=== PATIENT | male | born 1945 | race Caucasian/White ===

== ENCOUNTER → 2017-11-21 | Outpatient (CLI) | payer MEDICARE ==
[~2017-11-21] MED LIST: AMARYL4 MG PO; ASPIRIN ADULT L81 M1 PO; CHOLESTEROL PILL; CIPRO500 MG PO; EUCERIN1 CRE T; FLONASE 0.05% 121 EA NAS; LASIX40 MG PO; LISINOPRIL40 MG PO; LUMIGAN 2.5 ML2.5 M1 OP; METFORMIN1000 MG PO; VERAPAMIL240 MG PO; ZOCOR10 MG PO
== END | disposition home or self-care (01) ==
LOC: WOUNDCARE 00:49
DX: S81.802A Unspecified open wound, left lower leg, initial encounter (principal); S81.801A Unspecified open wound, right lower leg, initial encounter; E10.9 Type 1 diabetes mellitus without complications; I87.309 Chronic venous hypertension (idiopathic) without complications of unspecified lower extremity; E66.01 Morbid (severe) obesity due to excess calories; I89.0 Lymphedema, not elsewhere classified; J44.9 Chronic obstructive pulmonary disease, unspecified; F17.200 Nicotine dependence, unspecified, uncomplicated; Z68.43 Body mass index [BMI] 50.0-59.9, adult; X58.XXXA Exposure to other specified factors, initial encounter; Y93.89 Activity, other specified; Y92.89 Other specified places as the place of occurrence of the external cause; Y99.8 Other external cause status

== ENCOUNTER → 2017-11-24 | Outpatient (CLI) | payer MEDICARE | END | disposition home or self-care (01) | LOC: US 11:16 | DX: I73.9 Peripheral vascular disease, unspecified (principal); I87.003 Postthrombotic syndrome without complications of bilateral lower extremity ==

== ENCOUNTER → 2017-11-28 | Outpatient (CLI) | payer MEDICARE | END | disposition home or self-care (01) | LOC: WOUNDCARE 03:40 | DX: I89.0 Lymphedema, not elsewhere classified (principal); I87.303 Chronic venous hypertension (idiopathic) without complications of bilateral lower extremity; E10.9 Type 1 diabetes mellitus without complications; E66.01 Morbid (severe) obesity due to excess calories; F17.290 Nicotine dependence, other tobacco product, uncomplicated; Z68.43 Body mass index [BMI] 50.0-59.9, adult ==

== ENCOUNTER → 2017-12-19 | Outpatient (CLI) | payer MEDICARE | END | disposition home or self-care (01) | LOC: WOUNDCARE 15:02 | DX: S81.801D Unspecified open wound, right lower leg, subsequent encounter (principal); I89.0 Lymphedema, not elsewhere classified; I87.303 Chronic venous hypertension (idiopathic) without complications of bilateral lower extremity; E10.9 Type 1 diabetes mellitus without complications; E66.01 Morbid (severe) obesity due to excess calories; F17.290 Nicotine dependence, other tobacco product, uncomplicated; Z68.43 Body mass index [BMI] 50.0-59.9, adult; X58.XXXD Exposure to other specified factors, subsequent encounter ==

== ENCOUNTER → 2018-03-16 | Day surgery (SDC) | payer MEDICARE ==
[~2018-03-16] MED LIST changes: +LANTUS SOL100 UNIT/1 SQ; +VICTOZA 2-0.6 MG/0.1 SC
--- NOTE | ~2018-03-16 | PROC NOTE ---
[place], [place] PROCEDURE NOTE NAME: CHAYO WARD UNIT #: [id number] ROOM: DOCTOR: STEPHENIE FRIEND MD BIRTHDATE: [birth year] DOS: 03/16/2018 PROCEDURE: Colonoscopy and polypectomy. INDICATION: Positive fecal occult blood test. An informed consent was obtained from the patient after the indication of procedure, the alternatives and potential complications were explained to him. PROCEDURE MEDICATION: Sedation was administered by Anesthesiology Department. Scope used was Olympus diagnostic adult colonoscope variable stiffness GIF-180, depth of insertion was to the cecum, which was identified by the usual landmarks, appendiceal orifice, ileocecal valve and triangular fold. FINDINGS: After adequate sedation, the patient was placed in left lateral decubitus position. Rectal examination showed a normal sphincter tone and no external hemorrhoids. The scope was introduced into the rectum, then advanced to the cecum with marked difficulty due to looping in the left colon and the presence of a long redundant colon. The prep was adequate. Three polyps were identified in the left colon; all removed with a cold snare; a 10 mm descending colon, a 10 mm rectal polyp and another smaller 6 mm rectal polyp. All polyps were removed with a cold snare and recovered. The remaining colon mucosa showed evidence of extensive left-sided diverticular disease, but no other abnormalities. Retroflexed views in the rectum showed grade 1 internal hemorrhoids. The scope was then withdrawn after the rectum was decompressed. The patient tolerated the procedure well. IMPRESSION: 1. Colon polyps x 3, removed. 2. Extensive left-sided diverticular disease. 3. Small internal hemorrhoids. 4. Normal colon mucosa otherwise. PLAN: We will review the histopathology report and treat the patient accordingly. The patient was advised to avoid aspirin and NSAIDs for the next 10 days. Office followup will be scheduled in 2-3 weeks. [place], [place] PROCEDURE NOTE NAME: CHAYO WARD Kami UNIT #: [id number] ROOM: DOCTOR: STEPHENIE FRIEND MD BIRTHDATE: [birth year] STEPHENIE FRIEND MD CM:PROCNOTE:PROCEDURE NOTE [id number] AUSTEN FRIEND MD
[2018-03-16 08:00] VITALS: BP 145/79
[2018-03-16 09:15] VITALS: BP 84/54
[2018-03-16 09:30] VITALS: BP 98/65
[2018-03-16 09:40] VITALS: BP 114/67
== END | disposition home or self-care (01) ==
LOC: SDC 03-09 08:00
DX: D12.4 Benign neoplasm of descending colon (principal); K62.1 Rectal polyp; K57.30 Diverticulosis of large intestine without perforation or abscess without bleeding; K64.8 Other hemorrhoids; I10 Essential (primary) hypertension; E11.9 Type 2 diabetes mellitus without complications; J44.9 Chronic obstructive pulmonary disease, unspecified; E78.00 Pure hypercholesterolemia, unspecified; H40.9 Unspecified glaucoma; N41.1 Chronic prostatitis; E66.01 Morbid (severe) obesity due to excess calories; Z98.52 Vasectomy status; Z82.49 Family history of ischemic heart disease and other diseases of the circulatory system; Z79.4 Long term (current) use of insulin; Z79.82 Long term (current) use of aspirin; Z79.899 Other long term (current) drug therapy; Z68.43 Body mass index [BMI] 50.0-59.9, adult; Z98.890 Other specified postprocedural states

== ENCOUNTER → 2018-09-06 | Outpatient (CLI) | payer MEDICARE ==
[2018-09-06 09:47] LABS: BASO # 0.1 10*3/uL (0.0-0.1); BASO % 0.7 % (0.0-1.0); EOS # 0.3 10*3/uL (0.0-0.4); EOS % 2.6 % (1.0-4.0); HEMATOCRIT 47.2 % (42.0-52.0); LYMPH # 3.4 10*3/uL (1.3-4.4); LYMPH % 26.6 % (27.0-41.0); MEAN CELL VOLUME 99.6 fl (80.0-94.0); MEAN CORPUSCULAR HGB 31.6 pg (27.0-31.0); MEAN CORPUSCULAR HGB CONC 31.8 g/dl (33.0-37.0); MEAN PLATELET VOLUME 12.7 fl (9.6-12.3); MONO # 1.2 10*3/uL (0.1-1.0); MONO % 9.2 % (3.0-9.0); NEUT # 7.7 10*3/uL (2.3-7.9); NEUT % 60.2 % (47.0-73.0); PLATELET COUNT AUTOMATED 175 10*3/uL (130-400); RED BLOOD COUNT 4.74 10*6/uL (4.50-5.90); RED CELL DISTRI WIDTH 14.5 % (0-14.5); WHITE BLOOD COUNT 12.9 10*3/uL (4.8-10.8)
[2018-09-06 10:17] LABS: ALBUMIN 3.6 gm/dl (3.1-4.5); BUN 12 mg/dl (7-24); CHLORIDE 97 mmol/L (98-107); CHOLESTEROL 153 mg/dL (<200); CREATININE 0.87 mg/dL (0.70-1.30); POTASSIUM 3.6 mmol/L (3.5-5.1); SGOT/AST 19 IU/L (3-35); SGPT/ALT 42 U/L (12-78); SODIUM 136 mmol/L (136-145); TOTAL PROTEIN 7.5 gm/dL (6.4-8.2); TRIGLYCERIDES 189 mg/dl (<150); VLDL CHOLESTEROL 38 mg/dL (6-40)
[2018-09-06 10:24] LABS: ALKALINE PHOSPHATASE 45 U/L (45-117); FREE T4 0.74 ng/dl (0.76-1.46); HDL CHOLESTEROL 36 mg/dl (40-60); LDL CHOLESTEROL 79 mg/dL (9-159)
[2018-09-06 10:49] LABS: VITAMIN D, 25-HYDROXY 19.5 ng/mL (30-100)
== END | disposition home or self-care (01) ==
LOC: LAB 09:06
DX: E03.9 Hypothyroidism, unspecified (principal); E78.2 Mixed hyperlipidemia; I10 Essential (primary) hypertension; D51.9 Vitamin B12 deficiency anemia, unspecified; D52.9 Folate deficiency anemia, unspecified; E11.9 Type 2 diabetes mellitus without complications; E55.9 Vitamin D deficiency, unspecified

== ENCOUNTER 2019-01-21 09:25 | Inpatient (IN) | payer MEDICARE ==
[~2019-01-21] VITALS: Ht 167.6 cm; Wt 161.6 kg
[2019-01-21] VITALS (8 sets, daily range): BP systolic 96–158; BP diastolic 40–76
[~2019-01-21 09:25] MED LIST changes: -LUMIGAN 2.5 ML2.5 M1 OP; +LUMIGAN50 DRP OU
[2019-01-21 10:07] LABS: HEMATOCRIT 34.6 % (42.0-52.0); HEMOGLOBIN 10.3 g/dl (14.0-18.0); MEAN CELL VOLUME 97.2 fl (80.0-94.0); MEAN CORPUSCULAR HGB 28.9 pg (27.0-31.0); MEAN CORPUSCULAR HGB CONC 29.8 g/dl (33.0-37.0); MEAN PLATELET VOLUME 11.2 fl (9.6-12.3); NUCLEATED RED BLOOD CELL 0.1 % (0.0-0.0); PLATELET COUNT AUTOMATED 289 10*3/uL (130-400); RED BLOOD COUNT 3.56 10*6/uL (4.50-5.90); RED CELL DISTRI WIDTH 16.4 % (0-14.5)
[2019-01-21 10:19] LABS: INTERNATIONAL NORM RATIO 0.9 (2.0-3.5)
[2019-01-21 10:22] LABS: ALBUMIN 2.7 gm/dl (3.1-4.5); ALKALINE PHOSPHATASE 53 U/L (45-117); BUN 35 mg/dl (7-24); CHLORIDE 105 mmol/L (98-107); LIPASE 130 U/L (73-393); POTASSIUM 4.5 mmol/L (3.5-5.1); SGOT/AST 15 IU/L (3-35); SGPT/ALT 22 U/L (12-78); SODIUM 139 mmol/L (136-145); TROPONIN I < 0.015 ng/ml (<0.045)
--- NOTE | 2019-01-21 10:25 | NUR ---
NOTIFED BY LAB, PT HAS LACTIC ACID OF 7.4, DR DAWSON NOTIFED.
[2019-01-21 10:33] LABS: BASOPHILS 1 % (0-1); PLATELET SUFFICIENCY NORMAL (NORMAL); POLYCHROMASIA SLIGHT; TOTAL CELLS COUNTED 100 #CELLS
--- NOTE | 2019-01-21 11:37 | NUR ---
DR DUVALL AWARE OF CONSULT
--- NOTE | 2019-01-21 11:50 | NUR ---
A 73, admitted to ICCU, under the services of Dr. MICHAEL OSMAN,AMITA Del Toro with a diagnosis of . Chief complaint is BRIGHT RED RECTAL BLEEDING Patient arrived via stretcher from ER. Monitor applied. Initial assessment completed. Vital signs taken and recorded. DR. MICHAEL OSMAN,AMITA Del Toro notified of admission to the unit. Orders received. See assessment for past medical history, medications and allergies. Patient and/or family oriented to unit. [facility]U visitation policy reviewed. Clothing/patient valuable form completed. ALTAF MOTT
[2019-01-21] MEDS ORDERED: ATORVASTATIN CA40 M1 PO (11:56)
[2019-01-21] MEDS ORDERED: NITROFURANTOIN100 M3 PO (12:03)
[2019-01-21] MEDS ORDERED: INDOMETHACIN ER75 M1 PO (12:06)
[2019-01-21] MEDS ORDERED: APRESOLINE25 MG PO (12:08)
[2019-01-21] MEDS ORDERED: AMLODIPINE BESYL5 MG PO (12:09)
[2019-01-21] MEDS ORDERED: OMEPRAZOLE40 MG PO (12:11)
[2019-01-21] MEDS ORDERED: CYCLOBENZAPRIN7.5 M2 PO (12:12)
[2019-01-21] MEDS ORDERED: BRIMONIDINE TAR OP (12:13)
[2019-01-21] MEDS ORDERED: SPIRIVA RESPIMAT4 GM INH (12:15)
--- NOTE | 2019-01-21 12:45 | NUR ---
TAP WATER EMENA DONE AT THIS TIME. 1000 ML WAS USED. PT TOLERATED WELL. WILL CONTINUE TO MONITOR THE PATIENT
--- NOTE | 2019-01-21 13:00 | NUR ---
PT DESAT WHEN ASLEEP ON BACK, NC AT 2L PLACED PT ADMITS TO BEING DX WITH SLEEP APNEA, BUT HE NEVER BOTHERED TO GET "THAT SLEEPING MACHINE"
--- NOTE | 2019-01-21 13:18 | NUR ---
DR RODRIGUEZ CALLED WITH LACTIC ACID
--- NOTE | 2019-01-21 13:24 | NUR ---
DR RODRIGUEZ CALLED WITH CT RESULTS
--- NOTE | 2019-01-21 16:48 | NUR ---
TAP WATER ENEMA ADMINISTERED AT THIS TIME, 1000ML WAS INSERTED. WILL CONTINUE TO MONITOR THE PATIENT.
--- NOTE | 2019-01-21 16:55 | NUR ---
tap water enema done, with return of lema water with a few small specks of blood
--- NOTE | 2019-01-21 18:16 | NUR ---
TO OR VIA BED
--- NOTE | 2019-01-21 20:35 | NUR ---
2030 RETURNED FROM OR VIA BED. ALERT AND ORIENTED. NO C/O'S VOICED. REPORT RECEIVED. IV FLUIDS INFUSING WELL. NO DISTRESS NOTED. PULSE OX 93% ON 2L.
--- NOTE | 2019-01-21 21:24 | NUR ---
DR. DUVALL CALLED WITH RESULTS OF EGD. NO NEW ORDERS RECEIVED.
--- NOTE | 2019-01-21 22:13 | NUR ---
2129 ROUTINE ATIVAN AND FLEXERIL GIVEN. 2209 EARLIER MEDS EFFECTIVE. RESTING IN BED WITH EYES CLOSED. APPEARS TO BE SLEEPING.
[2019-01-22] VITALS: BP 139/56
--- NOTE | 2019-01-22 00:08 | NUR ---
REMAINS SLEEPING WIHTOUT DISTRESS. 02 INTACT. NO C/O'S VOICED.
--- NOTE | 2019-01-22 02:06 | NUR ---
0100 VOIDED ON FLOOR. THEN UP TO BSC AND VOIDED MORE. STEWARD.
[2019-01-22 04:00] VITALS: BP 130/62
--- NOTE | 2019-01-22 04:05 | NUR ---
RESTING IN BED WITH EYES CLOSED. APPEARS TO BE SLEEPING.
[2019-01-22 06:10] LABS: HEMATOCRIT 30.2 % (42.0-52.0); HEMOGLOBIN 8.9 g/dl (14.0-18.0); MEAN CELL VOLUME 98.1 fl (80.0-94.0); MEAN CORPUSCULAR HGB 28.9 pg (27.0-31.0); MEAN CORPUSCULAR HGB CONC 29.5 g/dl (33.0-37.0); PLATELET COUNT AUTOMATED 238 10*3/uL (130-400); RED BLOOD COUNT 3.08 10*6/uL (4.50-5.90); RED CELL DISTRI WIDTH 16.8 % (0-14.5); WHITE BLOOD COUNT 12.3 10*3/uL (4.8-10.8)
--- NOTE | 2019-01-22 06:11 | NUR ---
0530 UP TO BSC. URINATED ON FLOOR. LINENS WET. BATH TAKEN AT BEDSIDE AND LINENS CHANGED. ROUTINE ATIVAN PO GIVEN. 0600 RESTING IN BED WITH EYES CLOSED. APPEARS TO BE SLEEPING. IV FLUIDS CONT. 02 INTACT. CONDITION GUARDED.
[2019-01-22 06:25] LABS: ALBUMIN 2.6 gm/dl (3.1-4.5); BUN 26 mg/dl (7-24); CHLORIDE 108 mmol/L (98-107); POTASSIUM 4.3 mmol/L (3.5-5.1); SODIUM 142 mmol/L (136-145)
[2019-01-22 06:28] LABS: ALKALINE PHOSPHATASE 52 U/L (45-117); CREATININE 0.82 mg/dL (0.70-1.30); SGOT/AST 13 IU/L (3-35); SGPT/ALT 19 U/L (12-78); TOTAL PROTEIN 6.3 gm/dL (6.4-8.2)
[2019-01-22 07:02] LABS: ATYPICAL LYMPHS 1 % (0-0); PLATELET SUFFICIENCY NORMAL (NORMAL); POLYCHROMASIA SLIGHT; TOTAL CELLS COUNTED 100 #CELLS
--- NOTE | 2019-01-22 07:59 | NUR ---
CHAYO WARD [id number] Please refer to the physician's history and physical for past medical history, comorbid conditions, and allergies. Diagnosis: GI BLEED ISCHEMIC COLITIS ACUTE BLOOD LOSS ANEMIA Armaan Score: 15,AT RISK WOUND DESCRIPTIONS: Wound Number: 1 Location of the wound: distal scrotum ( left groin ) Type of wound: traumatic Thickness: Partial Size: 3.0cm x 2.1cm x 0.1cm Tunneling: none Undermining: none Sinus Tract: none Presence of Exudate: Serous Amount: Light Color: Red Odor: None Periwound Skin Appearance: Normal Wound edges: approximated Pain (associated with wound): none at time of assessment How does patient state this happened? pt unable to state how this happened Kailey Escalera WHOLESALE REPRESENTATIVE- states it was caused from him adjusting his undergarments. Wound Number: 2 Location of the wound: right posterior distal thigh ( right buttocks ) Type of wound: stage 2 Thickness: Partial Size: 1.7cm x 1.5cm x 0.1cm Tunneling: none Undermining: none Sinus Tract: none Presence of Exudate: Serous sanguineous Amount: Light Color: Red Odor: None Periwound Skin Appearance: Normal Wound edges: approximated Pain (associated with wound): none at time of assessment How does patient state this happened? pt states follow in the wound care center Wound Number: 3 Location of the wound: left lower extremity Type of wound: Thickness: Full Size: 47.0cm x 57.0cm x 0.1cm Tunneling: none Undermining: none Sinus Tract: none Presence of Exudate: Serosanguineous Amount: Heavy Color: Red Odor: None Periwound Skin Appearance: Normal Wound edges: approximated Pain (associated with wound): none at time of assessment How does patient state this happened? pt states home health wraps his leg at home but is unsure what doctor he sees for them I spoke with the wound care center and they stated they aren't following areas to bilateral lower extremities Wound Number: 4 Location of the wound: left lower extremity Type of wound: Thickness: Full Size: 47.0cm x 57.0cm x 0.1cm Tunneling: none Undermining: none Sinus Tract: none Presence of Exudate: Serosanguineous Amount: Heavy Color: Red Odor: None Periwound Skin Appearance: Normal Wound edges: approximated Pain (associated with wound): none at time of assessment How does patient state this happened? pt states home health wraps his leg at home but is unsure what doctor he sees for them I spoke with the wound care center and they stated they aren't following areas to bilateral lower extremities Wound Number: 5 Location of the wound: right posterior proxmial thigh ( right buttocks) Type of wound: stage 2 Thickness: Partial Size: 0.9cm x 2.5cm x 0.1cm Tunneling: none Undermining: none Sinus Tract: none Presence of Exudate: Serosanguineous Amount: Light Color: Red Odor: None Periwound Skin Appearance: Normal Wound edges: approximated Pain (associated with wound): none at time of assessment How does patient state this happened? pt states follow in wound care center Wound Number: 6 Location of the wound: proximal scrotum ( left groin ) Type of wound: traumatic Thickness: Partial Size: 0.6cm x 1.2cm x 0.1cm Tunneling: none Undermining: none Sinus Tract: none Presence of Exudate: Serous Amount: Light Color: Red Odor: None Periwound Skin Appearance: Normal Wound edges: approximated Pain (associated with wound): none at time of assessment How does patient state this happened? pt unable to state how this happened Kailey Escalera WHOLESALE REPRESENTATIVE-BC states it was caused from him adjusting his undergarments. Surface the patient is resting on: Isoflex SKIN PREVENTION RECOMMENDATION: 1. Pressure redistribution support surface as appropriate 2. Elevate heels 3. Remove boots/TEDS every shift and reapply 4. Head of bed 30 degrees as tolerated 5. Assess nutrition and hydration 6. Manage moisture 7. Avoid the use of containment devices while in bed 8. Use absorptive products on surfaces limit layers of linens on bed 9. Turn and reposition every 1-2 hours in bed and every 1 hour in chair as tolerated 10. Weight shifts every 15 minutes while up in chair 11. Offloading with pillows or device to keep heels elevated off bed 12. Monitor skin at least every shift 13. Inspect under medical devices twice a day WOUND TREATMENT RECOMMENDATIONS: Venous and arterial studies due to non-healing wounds. Consult podiatry for bilateral lower extremities due to non-healing wounds and possible debridement if studies allow. Stage 2 guidelines: Cleanse right posterior proximal thigh and right posterior distal thigh with nss and apply sureprep around the wound hydrogel to wound bed and cover with optifoam gentle Cleanse distal scrotum and proximal scrotum with nss apply calazime every shift and prn for soiling Wheelchair cushion when oob Heel raiser pro boots to bilateral heels while in bed Cleanse bilateral lower extremities with soap and water and apply lac-hydrin BID then cover with ABD pads and lightly wrap with kerlix BID and PRN for soiling.
[2019-01-22 08:00] VITALS: BP 101/50
[2019-01-22 12:00] VITALS: BP 145/48
--- NOTE | 2019-01-22 12:00 | NUR ---
PT SLEEPING IN BED. RESP-EASY AND REGULAR. IVF INFUSING WITH NO PROBLEM. CALL LIGHT IN REACH. SEE SHIFT ASSESSMENT.
--- NOTE | 2019-01-22 12:13 | NUR ---
Umbrella Repairer in to talk to patient. Patient states lives at home with his . There are 4 steps outside the home. Physician: Dr. Wili Naranjo [facility]acy: [facility] Home health services: none Patient's level of ADLs: INDEPENDENT Patient has working utilities: yes DME: none Follow-up physician's appointment after d/c: he prefers to make his own follow up appt after discharge Does patient want to access PORTAL?: no Discharge plan discussed with patient. He lives at home with his . He is independent in his ADLs and ambulation. Discussed short term SNF and home health care services and he refuses both. When medically stable he will be discharged to home. His will provide transportation on discharge. Hgb 8.9, EGD showed gastritis, colo showed retained stool. BC pending. BP 101/50, holding norvasc and lisinopril. JONAH RUBIO
--- NOTE | 2019-01-22 14:35 | NUR ---
PT ESCORTED VIA WHEELCHAIR TO ULTRASOUND.
[2019-01-22 16:00] VITALS: BP 135/53
--- NOTE | 2019-01-22 16:00 | NUR ---
PT RESTING IN BED. RESP-EASY AND REGULAR. BSG-149, SEE EMAR. IVF INFUSING WITH NO PROBLEM. OXYGEN IN USE. CALL LIGHT IN REACH. SEE SHIFT ASSESSMENT.
[2019-01-22 20:00] VITALS: BP 151/56
[2019-01-23] VITALS: BP 132/58
--- NOTE | 2019-01-23 00:20 | NUR ---
TONJAX & ADAPTASHLEY APPLIED TO BLL LEGS ARE SEEPING/DRAINING ONTO BED. PT TOLERATED WELL. WILL MONITOR.
[2019-01-23 08:00] VITALS: BP 136/78
--- NOTE | 2019-01-23 11:14 | NUR ---
Bulk Pallet Builder in to see patient. He is sitting up in his bedside chair without distress noted. Discussed short term SNF and he is agreeable. When provided with a list of facilities he chose [facility]. He is very [place]. cyber intel planner notified.
--- NOTE | 2019-01-23 11:24 | NUR ---
PT HAD REMOVED IV WHILE SITTING IN CHAIR EATING BREAKFAST AND IV ESTABLISHED BY THIS FLOAT RN 20G RIGHT AC 2 ATTEMPTS BY THIS RN.
--- NOTE | 2019-01-23 11:25 | NUR ---
Patient is now requesting a referral to [facility]. Contacted facility and faxed referral. Requires PT/OT evals and precert. waiting on review and evals.
--- NOTE | 2019-01-23 11:50 | NUR ---
Occupational Therapy evaluation completed on 4 with full eval to follow. Precautions include obesity, IV UE, Oxygen dependency, [place] w/ hearing aides, glaucoma, moderate complexity level 45571. Recommend OT per pOC and SNF to enable return home w/ elderly at max ability to function. Thank you. Derrek Marsh OTR/l
[2019-01-23 12:00] VITALS: BP 130/50
--- NOTE | 2019-01-23 12:20 | NUR ---
PHYSICAL THERAPY Mina completed moderate level of complexity [id number] recommend SNF at discharge PT to work on transfers,ambulation,balance,safety and strengthening. Full report to follow, thank you. Lucero Coronado PT
[2019-01-23 13:03] LABS: ARTERIAL BLOOD GAS PH 7.316 (7.35-7.45)
--- NOTE | 2019-01-23 13:39 | NUR ---
PT and OT evals completed and faxed to [facility] for review. Asked to start precert
--- NOTE | 2019-01-23 13:55 | NUR ---
Patient accepted to [facility], yeni started today. [facility] stating they need to order a larger bed for this patient and it will not arrive until tomorrow.
[2019-01-23 16:00] VITALS: BP 150/56
[2019-01-23 16:27] LABS: ABG BASE EXCESS 4.2 mmol/L (-2.0-2.0); ARTERIAL BLOOD GAS PH 7.305 (7.35-7.45)
[2019-01-23 20:00] VITALS: BP 147/47
--- NOTE | 2019-01-23 23:32 | NUR ---
PATIENT AT THIS TIME FELL. BED ALARM WENT OFF AND THIS NURSE AND AN AID WENT INTO PATIENT ROOM. PATIENT WAS SITTING ON THE SIDE OF THE BED AND STATED THAT HE NEEDED TO GO TO THE BATHROOM. THIS NURSE LOOKED FOR URINAL AND COULD NOT FIND ONE, HE STATED HE WAS USING THE BEDSIDE COMMODE BECAUSE HE IS UNABLE TO USE THE URINAL. THE BEDSIDE WAS BROUGHT CLOSE TO PATIENT HE IS UNSTEADY ON HIS FEET. PATIENT STOOD UP AND STATED HE WANTED TO STAND THERE AND ATTEMPT TO USE IT STANDING UP. THIS NURSE ENCOURAGED THE PATIENT THAT IF HE IS UNABLE TO USE THE URINAL THAT HE SHOULD PROBABLY SIT DOWN ON THE BEDSIDE, PATIENT REFUSED AND BEGAN TO PULL HIS GOWN UP AND STARTED TO FALL BACKWARDSS. PATIENT FELL ON GROUND. DID NOT HIT HEAD, FELL ON BIPAP AND THEN ON THE FLOOR. STATES HE DID NOT HURT ANYTHING AND WAS FINE. PATIENT GOT BACK UP AND WE GOT HIM BCK IN BED AND ASSISTED HIM WITH USING THE URINAL IN BED. BED ALARM REAPPLIED AND ENCOURAGED PATIENT TO CALL OUT FOR ASSISTANCE WITH THE URINAL IF HE IS UNBLE TO USE IT HIMSELF. HE VERBALIZED UNDERSTANDING. FIELD SERVICE MANAGER MADE AWARE. PATIENT WILL BE MOVED TO A CLOSER ROOM.
[2019-01-23 23:37] VITALS: BP 152/63
[2019-01-24] VITALS: BP 162/74
--- NOTE | 2019-01-24 04:45 | NUR ---
PATIENT REMOVED BIPAP AND STATES HE NEEDS TO SAY SOMETHING. BIPAP REMOVED AND PLACED ON 4L NC, SPO2 DECREASED TO LOW 80'S. EDUCATED AND PLACED BACK ON BIPAP. PATIENT STATES THAT HE NEEDS TO USE THE REST ROOM AT THIS TIME AND ATTEMPTING TO GET OOB, ASSISTED BACK INTO BED AND URINAL PROVIDED, ALSO ASSISTED TO MOVE UP IN BED. HR TACHY AT THIS TIME AND SPO2 93. PATIENT REPOSITIONED AND MADE COMFORTABLE. WILL REASSESS. CALL LIGHT IN REACH.
--- NOTE | 2019-01-24 05:44 | NUR ---
IV ATIVAN GIVEN FOR INCREASED AGITATION. WILL MONITOR. HR 114 SPO2 93 ON BIPAP
[2019-01-24 07:16] LABS: ABG BASE EXCESS 6.2 mmol/L (-2.0-2.0); ARTERIAL BLOOD GAS PH 7.354 (7.35-7.45)
--- NOTE | 2019-01-24 07:40 | NUR ---
Patient accepted to [facility], precert started 01/23/19, waiting on auth
--- NOTE | 2019-01-24 07:50 | NUR ---
PT TEMP READING 103.[address] BIRD NOTIFIED. ADMINISTERED TYLENOL ORDERED AND TRANSFERRED TO ICCU ORDERRED.
--- NOTE | 2019-01-24 08:12 | NUR ---
OT NOTE Attempted to see pt this A.M. for OT session and upon arrival pt's nurse reported that pt is on hold at this time due to high fever. Will check back at a later time/date and continue with POC as indicated. LUIS CARLOS Woodosn/Kami
[2019-01-24 08:14] LABS: HEMATOCRIT 30.8 % (42.0-52.0); HEMOGLOBIN 9.2 g/dl (14.0-18.0); MEAN CELL VOLUME 95.7 fl (80.0-94.0); MEAN CORPUSCULAR HGB 28.6 pg (27.0-31.0); MEAN CORPUSCULAR HGB CONC 29.9 g/dl (33.0-37.0); MEAN PLATELET VOLUME 10.6 fl (9.6-12.3); PLATELET COUNT AUTOMATED 282 10*3/uL (130-400); RED BLOOD COUNT 3.22 10*6/uL (4.50-5.90); RED CELL DISTRI WIDTH 16.5 % (0-14.5); WHITE BLOOD COUNT 23.5 10*3/uL (4.8-10.8)
[2019-01-24 08:20] VITALS: BP 110/40
--- NOTE | 2019-01-24 08:20 | NUR ---
RECIEVED IN ICCU FROM [facility] FOR ELEVATED TEMP AND RESP DISTRESS, PT ALERT AND ORIENTED, SOMEWHAT DISORIENTED TO PLACE AND CURRENT EVENTS, PULLS AT BIPAP BUT OTHERWISE COOPERATIVE, SECOND IV PLACED IN RIGHT HAND, LUNG DIMINISHED THRU OUT
[2019-01-24 08:29] LABS: ALBUMIN 2.7 gm/dl (3.1-4.5); ALKALINE PHOSPHATASE 59 U/L (45-117); BUN 7 mg/dl (7-24); CHLORIDE 104 mmol/L (98-107); CREATININE 0.77 mg/dL (0.70-1.30); POTASSIUM 4.6 mmol/L (3.5-5.1); SGOT/AST 22 IU/L (3-35); SGPT/ALT 25 U/L (12-78); SODIUM 139 mmol/L (136-145)
--- NOTE | 2019-01-24 08:29 | NUR ---
ORDERS RECIEVED FROM DR. BIRD TO Joshua/Mu BERNAL AND START JESSICA YANG Q4H, TRANSFER TO ICCU AND CANCEL HEAD CT AND JUST DO THE CT OF THE CHEST
--- NOTE | 2019-01-24 08:31 | NUR ---
PHYSICAL THERAPY Patient was approached for therapy session at 8:12 am and he was on BI-PAP machine and his NURSE, YUNI BOWIE said the patient has a temperture of 103.9 AND WOULD NEED TO REST. WILL CHECK BACK LATER WITH PATIENT. FADY WEISS SLIP FILLER
[2019-01-24 08:35] LABS: TOTAL CELLS COUNTED 100 #CELLS
[2019-01-24 08:38] LABS: PLATELET SUFFICIENCY NORMAL (NORMAL); POLYCHROMASIA SLIGHT; SCHISTOCYTES FEW; STOMATOCYTE FEW
--- NOTE | 2019-01-24 08:49 | NUR ---
Follow up with Dr. Ndiaye in wound care clinic on 01/29/19 at 9:30am, call [phone] with any concerns
[2019-01-24 12:00] VITALS: BP 117/60
--- NOTE | 2019-01-24 12:50 | NUR ---
1 MG IV ATIVAN FOR AGITATION/DT'S HAS BEEN EFFECTIVE PT IN RECLINER AND BIPAP REPLACED AFTER LUNCH, TOLERATING WELL
[2019-01-24 16:00] VITALS: BP 135/60
--- NOTE | 2019-01-24 16:10 | NUR ---
BIPAP OFF PT. PLACED ON 4L NC
--- NOTE | 2019-01-24 19:30 | NUR ---
PATIENT SITTING UP TRYING TO EAT AND DRINK (FULL LIQUID DIET), PATIENT CHOKING. POSSIBLY ASPIRATING. DR. RODRIGUEZ NOTIFIED. WILL PUT IN SPEECH CONSULT.
[2019-01-24 20:00] VITALS: BP 151/67
--- NOTE | 2019-01-24 20:00 | NUR ---
CPT DONE X 10MIN, MOIST NON PRODUCTIVE COUGH, TOLERATED WELL.
--- NOTE | 2019-01-24 22:45 | NUR ---
REQUESTED BEDPAN, NO BM, LARGE AMOUNT OF URINE THROUGHOUT THE BED.
[2019-01-25] VITALS: BP 149/56
[2019-01-25 04:00] VITALS: BP 135/69
--- NOTE | 2019-01-25 07:50 | NUR ---
Patient was on the occupational therapy caseload while on floor four prior to being admitted to the ICCU. Will need new orders for an OT evaluation/treatment when patient is appropriate. Thank you. Collette Rodriguez, OTR/L
--- NOTE | 2019-01-25 07:53 | NUR ---
OCCUPATIONAL THERAPY CO-SIGN I approve of the Occupational Therapy notes written above. Collette Rodriguez, OTR/L
[2019-01-25 08:00] VITALS: BP 136/61
--- NOTE | 2019-01-25 08:01 | NUR ---
PHYSICAL THERAPY Pt had change in medical status transferred to ICU will require new orders for Physical Therapy, thank you. uLcero Coronado PT
[2019-01-25 11:06] LABS: ABG BASE EXCESS 5.4 mmol/L (-2.0-2.0); ARTERIAL BLOOD GAS PH 7.344 (7.35-7.45)
--- NOTE | 2019-01-25 11:06 | NUR ---
Nutritional Support Services Note: Pt is choking on full liquid diet. Speech therapy to evaluate. Recommend NPO status until speech evaluation. Will follow. Mikaela Knight Rdn Ld
[2019-01-25 12:00] VITALS: BP 134/55
--- NOTE | 2019-01-25 12:50 | NUR ---
Patient was accepted to [facility] and then transferred to ICCU. New orders for PT and OT were placed on 01/25/19; Will require new PT and OT notes for precert when patient is medically stable
--- NOTE | 2019-01-25 13:00 | NUR ---
SPEECH THERAPY-MBS Patient seen for MBS this morning due to concenrs for choking on fluids. Patient with primary diagnosis of GI bleed/ischemic colitis with PMHx s/f HTN, hyperlipidemia, DM2, COPD, and GERD. Per nursing note, patient choking and possibly asirating on liquids. Recent CT of chest revealed no pleural effusion, pleural thickening, or pneumothorax with bibasilar patchy atlelectasis and 2 masslike opacities visible. Patient with increased WBC count and is currently on a full liquid diet. Patient is edentulous and oral mech revealing lingual, labial, and buccal skills WNL in terms of strength, ROM, and coordination. Patient was hard of hearing which appeared to affect his ability to follow verbal commands during evaluation. Patient receiveing 02 via NC. He denied difficulty swallowing, with nurse present during evaluation stating patient has done well at meals. Patient assessed with barium-coated applesauce, banana, and sandwich, with nectar-like and thin liquid barium via cup. Mastication was assessed to be mildly reduced in speed during trials of solids with delayed oral transit and multiple swallows required to clear the oral cavity, however overall functional. Pharyngeal phase of the swallow was additionally functional across trials. Transient penetration observed during one trial of thin liquid, which patient consumed with naturally large sip size, requiring consecutive sips. Cues to reduced sip size assisted with no additional penetration or aspiration observed. No penetration or aspiration observed on remaining trials of solids and liquids. Mild-mod vallecular and pyriform sinus resudes observed following trials. Patient recommened soft diet (when appropriate to switch from full liquid diet at the discretion of physicians) with thin liquids. Patient to consume small, single sips of liquid while utilizing additional universal safe swallowing strategies including sitting uprigth during all PO intake, taking small bites and sips, and alternating between solids and liquids. Short-term follow up speech treatment is recommended to ensure safety and tolerance of recommended diet throughout a meal with adherence to safe swallowing strategies. Results and recommendations shared with patient and patient's nurse who vervalized understanding. Thank you four your consultation. Rocío Gomez MA CCC-SHOE CLERK
--- NOTE | 2019-01-25 15:48 | NUR ---
PHYSICAL THERAPY Reassess completed moderate level of [id number] recommend SNF at discharge full report to follow. PT to work on transfers,amb with AD, strengthening, balance/safety. Lucero Coronado PT
[2019-01-25 16:00] VITALS: BP 156/60
--- NOTE | 2019-01-25 20:27 | NUR ---
24 HR chart check completed.
--- NOTE | 2019-01-25 20:27 | NUR ---
24 HR chart check completed.
[2019-01-26] VITALS: BP 154/67
--- NOTE | 2019-01-26 | NUR ---
PATIENT RESTING ON BIPAP, NO SIGNS OF DISTRESS.
[2019-01-26 04:00] VITALS: BP 148/72
--- NOTE | 2019-01-26 05:19 | NUR ---
PATIENT REQUESTED A BREAK FROM BIPAP, TOLERATED WELL THROUGHOUT THE NIGHT. PLACED ON 4L NC. POX 95%
[2019-01-26 05:34] LABS: HEMATOCRIT 29.1 % (42.0-52.0); HEMOGLOBIN 8.8 g/dl (14.0-18.0); MEAN CELL VOLUME 94.5 fl (80.0-94.0); MEAN CORPUSCULAR HGB 28.6 pg (27.0-31.0); MEAN CORPUSCULAR HGB CONC 30.2 g/dl (33.0-37.0); MEAN PLATELET VOLUME 10.1 fl (9.6-12.3); PLATELET COUNT AUTOMATED 297 10*3/uL (130-400); RED BLOOD COUNT 3.08 10*6/uL (4.50-5.90); RED CELL DISTRI WIDTH 16.2 % (0-14.5); WHITE BLOOD COUNT 13.4 10*3/uL (4.8-10.8)
[2019-01-26 05:45] LABS: ALBUMIN 2.3 gm/dl (3.1-4.5); ALKALINE PHOSPHATASE 59 U/L (45-117); BUN 7 mg/dl (7-24); CHLORIDE 103 mmol/L (98-107); CREATININE 0.65 mg/dL (0.70-1.30); POTASSIUM 4.4 mmol/L (3.5-5.1); SGOT/AST 43 IU/L (3-35); SGPT/ALT 48 U/L (12-78); SODIUM 139 mmol/L (136-145); TOTAL PROTEIN 6.5 gm/dL (6.4-8.2)
[2019-01-26 07:15] LABS: BASOPHILS 1 % (0-1); PLATELET SUFFICIENCY NORMAL (NORMAL); POLYCHROMASIA SLIGHT; STOMATOCYTE FEW; TARGET CELLS FEW; TOTAL CELLS COUNTED 100 #CELLS
[2019-01-26 08:00] VITALS: BP 146/51
--- NOTE | 2019-01-26 08:00 | NUR ---
MULTIPLE STAFF ASSISTED OUT OF BED TO CHAIR. PATIENT C/O BILATERAL KNEE PAIN BUT ESPECIALLY HIS RIGHT KNEE. AT BEDSIDE AND AWARE. DISCUSSED WITH PATIENT ABOUT GOING TO AN LTAC FOR THERAPY, ANTIBIOTICS AND WOUND CARE. PATIENT STATED THAT HE WOULD HAVE TO DISCUSS WITH HIS .
--- NOTE | 2019-01-26 10:00 | NUR ---
AT BEDSIDE. INFORMED HER OF WANTING PATIENT TO GO TO LTAC. SHE IS OKAY WITH THIS.
[2019-01-26 12:00] VITALS: BP 144/54
[2019-01-26 16:00] VITALS: BP 154/63
[2019-01-26 20:00] VITALS: BP 137/55
[2019-01-27] VITALS: BP 132/56
[2019-01-27 04:00] VITALS: BP 113/62
[2019-01-27 06:11] LABS: ALBUMIN 2.2 gm/dl (3.1-4.5); ALKALINE PHOSPHATASE 65 U/L (45-117); BUN 8 mg/dl (7-24); CHLORIDE 103 mmol/L (98-107); POTASSIUM 4.4 mmol/L (3.5-5.1); SGOT/AST 77 IU/L (3-35); SGPT/ALT 82 U/L (12-78); SODIUM 140 mmol/L (136-145); TOTAL PROTEIN 6.7 gm/dL (6.4-8.2)
[2019-01-27 06:12] LABS: BASO # 0.1 10*3/uL (0.0-0.1); BASO % 0.5 % (0.0-1.0); EOS # 0.3 10*3/uL (0.0-0.4); EOS % 3.3 % (1.0-4.0); HEMATOCRIT 28.9 % (42.0-52.0); HEMOGLOBIN 8.7 g/dl (14.0-18.0); LYMPH # 1.5 10*3/uL (1.3-4.4); LYMPH % 15.3 % (27.0-41.0); MEAN CELL VOLUME 94.1 fl (80.0-94.0); MEAN CORPUSCULAR HGB 28.3 pg (27.0-31.0); MEAN CORPUSCULAR HGB CONC 30.1 g/dl (33.0-37.0); MEAN PLATELET VOLUME 10.5 fl (9.6-12.3); MONO # 1.3 10*3/uL (0.1-1.0); MONO % 13.2 % (3.0-9.0); NEUT # 6.5 10*3/uL (2.3-7.9); NEUT % 67.2 % (47.0-73.0); PLATELET COUNT AUTOMATED 317 10*3/uL (130-400); RED BLOOD COUNT 3.07 10*6/uL (4.50-5.90); RED CELL DISTRI WIDTH 16.1 % (0-14.5); WHITE BLOOD COUNT 9.7 10*3/uL (4.8-10.8)
[2019-01-27 08:00] VITALS: BP 128/67
--- NOTE | 2019-01-27 08:00 | NUR ---
RESTING IN BED. ALERT AND ORIENTED TIMES THREE. VITALS STABLE. PULSE OX 94% ON 4.5 LITERS NASAL CANNULA. I/E WHEEZE HEARD IN LUNG BETHEA. USED URINAL FOR 200CC URINE, NEW IV STARTED IN LEFT ARM AFTER 1 ATTEMPT.
[2019-01-27 12:00] VITALS: BP 129/54
[2019-01-27 16:00] VITALS: BP 129/54; BP 140/60
[2019-01-27 20:00] VITALS: BP 134/50
--- NOTE | 2019-01-27 23:45 | NUR ---
Pt placed on BiPap 20/10. FiO2 30% Alarms on and audible
[2019-01-28] VITALS: BP 124/58
[2019-01-28 04:00] VITALS: BP 135/61
[2019-01-28 05:28] LABS: BASO # 0.1 10*3/uL (0.0-0.1); BASO % 0.6 % (0.0-1.0); EOS # 0.4 10*3/uL (0.0-0.4); EOS % 4.6 % (1.0-4.0); HEMATOCRIT 31.3 % (42.0-52.0); HEMOGLOBIN 9.3 g/dl (14.0-18.0); LYMPH # 1.8 10*3/uL (1.3-4.4); LYMPH % 18.5 % (27.0-41.0); MEAN CORPUSCULAR HGB 27.9 pg (27.0-31.0); MEAN CORPUSCULAR HGB CONC 29.7 g/dl (33.0-37.0); MEAN PLATELET VOLUME 10.3 fl (9.6-12.3); MONO # 1.2 10*3/uL (0.1-1.0); MONO % 12.9 % (3.0-9.0); NEUT % 62.8 % (47.0-73.0); PLATELET COUNT AUTOMATED 384 10*3/uL (130-400); RED BLOOD COUNT 3.33 10*6/uL (4.50-5.90); WHITE BLOOD COUNT 9.5 10*3/uL (4.8-10.8)
[2019-01-28 05:51] LABS: ALBUMIN 2.4 gm/dl (3.1-4.5); ALKALINE PHOSPHATASE 70 U/L (45-117); BUN 10 mg/dl (7-24); CHLORIDE 102 mmol/L (98-107); CREATININE 0.62 mg/dL (0.70-1.30); POTASSIUM 4.4 mmol/L (3.5-5.1); SGOT/AST 65 IU/L (3-35); SGPT/ALT 87 U/L (12-78); SODIUM 139 mmol/L (136-145); TOTAL PROTEIN 7.2 gm/dL (6.4-8.2)
--- NOTE | 2019-01-28 07:50 | NUR ---
Patient not available for Occupational Therapy evaluation as he is eating breakfast. Teresa Marsh OTR/l
[2019-01-28 08:00] VITALS: BP 139/60
--- NOTE | 2019-01-28 09:10 | NUR ---
Occupational Therapy evaluation completed in ICCU with full eval to follow. Precautions include ICCU, O2 @ 5 1/2 LPM, SOB w/ min exertion, obesity, stasis dermatitis BLEs, moderate complexity level [id number]. Recommend OT per POC and SNF to enble return home w/ at prior level of functioning. Thank you. Teresa Marsh OTR/l
--- NOTE | 2019-01-28 09:34 | NUR ---
Received order for [facility]. Contacted facility and emailed referral. Auto Cleaner stated with patients insurance [employer] it is a 50/50 chance of approval. Also faxed updates to original plan of [facility]. However, waiting on PT/OT evals and notes to complete precert.
--- NOTE | 2019-01-28 09:38 | NUR ---
[facility] Contacted [facility] and emailed referral. Sixth Grade Teacher stating with patients insurance it is a 50/50 chance of approval. Also faxed updates to [facility] to continue referral. However since patient was transferred to ICCU, new PT/OT orders were put in on 01/25/19. New PT eval completed and faxed. Waiting on additional PT notes and the OT eval/notes to complete referral precert.
--- NOTE | 2019-01-28 09:46 | NUR ---
OT perico completed and faxed to [facility] to complete referral. Will need additional therapy notes for precert.
--- NOTE | 2019-01-28 10:34 | NUR ---
PHYSICAL THERAPY TREATMENT TIME: 0905 AM - 09:25 AM Patient presented to therapy in sitting in bedsdie chair in [facility]- with 5 liters of spO2 via nasal canula. Patient gives informed consent for treatment. Patient was identifed by name and on wristband. Patient transferred sit to stand from BEDSIDE LOW CHAIR with CGA X 2. Patient performed stood at bedside chair with CGA X 2 for 2 minutes. Patient then ambulated 5' x 4 forwards and 5' x 4 back wards with Wh Walker and CGA X 2. Patient transferred back to sitting in bedside chair with MIN A X 1 with VERBAL CUES putting hands back on armrests of chair. Patient performed sitting LAQs 2 x 10 reps each for strengthening the LEs in order to improve patient's functional mobility. Patient was left in sitting in bedside chair with call light within reach, chair alarm attached and tray table near patient. Patient was 1:1 with this SECTION HAND HELPER for 20 minutes total. FADY WEISS SECTION HAND HELPER
--- NOTE | 2019-01-28 11:07 | NUR ---
SPOKE WITH DR. RODRIGUEZ REGARDING PICC LINE INSERTION. WE HAVE A PERIPHERAL LINE AND ORDER CANCELLED FOR PICC LINE
[2019-01-28 12:00] VITALS: BP 139/67
--- NOTE | 2019-01-28 13:09 | NUR ---
Grain Combine Driver in to see patient. at bedside. Discussed LT[facility] vs [facility] and patient and are requesting the patient be discharged to home. They are refusing either facility. Discussed home health care and they both refuse. Discussed how he was going to get around in his house. He states he has a walker and will be able to go from the living room to the bathroom without difficulty and his will be there to help him if needed. states there are no steps in the house. He states he has done more therapy at home than he has received in here for the whole time he has been here. Dr. Naranjo and associate media planner notified.
[2019-01-28 16:00] VITALS: BP 134/71; BP 154/66
--- NOTE | 2019-01-28 19:21 | NUR ---
CHART CHECK COMPLETE.
[2019-01-28 20:00] VITALS: BP 140/66
[2019-01-29] VITALS: BP 129/55
--- NOTE | 2019-01-29 02:41 | NUR ---
REMAINS ON BIPAP. HE UTILIZES URINAL TO VOID WITHOUT DIFFICULTY.
--- NOTE | 2019-01-29 03:08 | NUR ---
PT REMOVES BIPAP HIMSELF. FACE WASHED AND FRESH WATER GIVEN TO PT. HE IS PLACED ON NC.
--- NOTE | 2019-01-29 04:16 | NUR ---
Upon discharge recommend patient to follow up for wound care in outpatient setting continue current wound care orders at discharging facility.
--- NOTE | 2019-01-29 04:51 | NUR ---
PT WAS SITTING ON SIDE OF BED BUT HAS LAYED DOWN AT THIS TIME.
--- NOTE | 2019-01-29 05:24 | NUR ---
CHAYO WARD [id number] Please refer to the physician's history and physical for past medical history, comorbid conditions, and allergies. Diagnosis: GI BLEED ISCHEMIC COLITIS ACUTE BLOOD LOSS ANEMIA Armaan Score: 15,AT RISK WOUND DESCRIPTIONS: Wound Number: 1 Location of the wound: distal scrotum ( left groin ) Type of wound: traumatic Thickness: Partial Size: 3.5cm x 1.5cm x 0.1cm Tunneling: none Undermining: none Sinus Tract: none Presence of Exudate: Serous Amount: Light Color: Red Odor: None Periwound Skin Appearance: Normal Wound edges: approximated Pain (associated with wound): none at time of assessment How does patient state this happened? pt unable to state how this happened [facility] states it was caused from him adjusting his undergarments Wound Number: 2 Location of the wound: right posterior distal thigh ( right buttocks ) Type of wound: stage 2 Thickness: Partial Size: 1.7cm x 1.1cm x 0.1cm Tunneling: none Undermining: none Sinus Tract: none Presence of Exudate: Serosanguineous Amount: Light Color: Red Odor: None Periwound Skin Appearance: Normal Wound edges: approximated Pain (associated with wound): none at time of assessment How does patient state this happened? pt states follow in the wound care center Wound Number: 3 Location of the wound: left lower extremity dressing intact podiatry to change dressing in the morning. Wound Number: 4 Location of the wound: left lower extremity dressing intact podiatry to change dressing in the morning Wound Number: 5 Location of the wound: right posterior proxmial thigh ( right buttocks) scar tissue noted. No drainage at time of assessment. No open areas noted at time of assessment. Wound Number: 6 Location of the wound: proximal scrotum ( left groin ) Type of wound: traumatic Thickness: Partial Size: 0.5cm x 0.5cm x 0.1cm Tunneling: none Undermining: none Sinus Tract: none Presence of Exudate: Serous Amount: Light Color: Red Odor: None Periwound Skin Appearance: Normal Wound edges: approximated Pain (associated with wound): none at time of assessment How does patient state this happened? pt unable to state how this happened [facility] states it was caused from him adjusting his undergarments. Surface the patient is resting on: Isoflex SKIN PREVENTION RECOMMENDATION: 1. Pressure redistribution support surface as appropriate 2. Elevate heels 3. Remove boots/TEDS every shift and reapply 4. Head of bed 30 degrees as tolerated 5. Assess nutrition and hydration 6. Manage moisture 7. Avoid the use of containment devices while in bed 8. Use absorptive products on surfaces limit layers of linens on bed 9. Turn and reposition every 1-2 hours in bed and every 1 hour in chair as tolerated 10. Weight shifts every 15 minutes while up in chair 11. Offloading with pillows or device to keep heels elevated off bed 12. Monitor skin at least every shift 13. Inspect under medical devices twice a day WOUND TREATMENT RECOMMENDATIONS: Continue stage 2 guidelines to right posterior distal thigh. Continue calazime to proixmal and distal scrotum. Continue wheelchair cushion. Continue heel raiser pro boots while in bed. Continue dressing to bilateral lower extremities per podiatry.
--- NOTE | 2019-01-29 05:50 | NUR ---
PT'S LAST BM WAS NOTED 01/24 AND PT CONFIRMS THIS WELL. MEDICATED WITH MILK OF MAGNESIA ORDERED AND PER PT REQUEST.
[2019-01-29 08:00] VITALS: BP 148/66
--- NOTE | 2019-01-29 08:10 | NUR ---
PHYSICAL THERAPY Patient seen this am 1:1 for therapy visit and was supine in bed upon therapist arrival. Patient identified by name / and presented with continuos O2-3L via NC. Patient was pleasant recording HR 97 bpm prior to treatment while transfering supine to sit EOB SBA x 1. Patient completed sit to stand SBA, then ambulated with use of wh walker, 40'x 1, CGA, demonstrating "slouched" standing posture, decreased stride and needed v/c to improve safe 90/180 turns to prevent risk of falling. Patient also able to walk backwards 5'x 1, no LOB and returned to EOB sit with mild fatigue. Patient performed sit to stand transfer, completing SPT to bedside chair, wh walker, SBA and remained in chair with call light / tray table awaiting breakfast. Will continue per POC as tolerated, total treatment time 17 minutes. Misbah Barker, IMPORT SPECIALIST
--- NOTE | 2019-01-29 09:00 | NUR ---
Precision Honing Machine Operator in to see patient. No new needs or request at this time. He is anxious to be discharged. at bedside. He refuses LTAC, SNF, or HH. When medically stable he will be discharged to home.
--- NOTE | 2019-01-29 09:05 | NUR ---
Pt was seen for OT x 25 minutes beginning with supine to sit at EOB with supervision only. When sitting @ EOB, donned non-slip socks with Min A to bring socks over heels due to edema. Pt also performed grooming at EOB with set up. Sit to stand with supervision & performed fxl mobility in bedroom area with close supervision due to hx of falls. O2 in place & call light within reach. Continue with POC. Hetal ESTRADA/Kami
--- NOTE | 2019-01-29 10:40 | NUR ---
SPEECH THERAPY PATIENT SEEN ON 01/28/19 FOR FOLLOWUP WITH SPEECH THERAPY FOLLOWING [facility] ON 01/25/19. PATIENT WAS SEEN DURING LUNCH AT BEDSIDE, WHILE SEATED AT 90 DEGREES. PATIENT IS CURRENTLY ON DIET WITH SOFT FOODS AND THIN LIQUIDS. PATIENT REPORTED NO PROBLEMS WITH SWALLOWING FOODS OR LIQUIDS. UNIVERSAL SAFE SWALLOWING STRATEGIES REVIEWED WITH PATIENT AND WERE OBSERVED DURING MEALTIME. PATIENT'S REPORTED THAT PATIENT IS A "SLOW EATER" AND ALWAYS CAREFULLY CUTS UP FOOD INTO SMALL PIECES. THIS STATEMENT WAS CONSISTENT WITH CLINICIAN OBSERVATIONS. RECOMMEND FOR PATIENT TO CONTINUE DIET OF SOFT FOODS WITH THIN LIQUIDS. PATIENT AND VERBALIZED UNDERSTANDING AND NURSE INFORMED. IVONNE LAROSE M.S., CF-ACCOUNTANT MANAGER
--- NOTE | 2019-01-29 10:59 | NUR ---
SPEECH PATHOLOGY Patient seen this am for continued f/u swallowing treatment. He was seated at 90 degrees in chair and was observed during entire breakfast meal. He was very deliberate about cutting his food into small pieces. He ate slow due to being edentulous with prolonged periods of mastication. He swallowed bites of nepali toast, scrambled eggs, and thin liquid coffee and milk without difficulty. Observed single cough with coffee 1X after he had belched. Toward end of meal observed 2 consecutive coughs after he had tipped his head back to finish his coffee. Cued to use straw when drink gets low to avoid tilting head back and he verbalized agreement and did so with his milk. He consumed milk with straw with no s/s aspiration. Required verbal cue 2X to take smaller sips of coffee, to which he complied. Discussed importance of continuing safe swallowing prevautions at home such as upright posture for all meals, small bites/sips, alternating solids/liquids, use of straw and end of drink to avoid backward head tilting. He verbalized agreement to all recommendations and demonstrated use of strategies throughout meal. Continue to monitor for adherence to safe swallowing precautions. Av Perkins MA CCC-DIRECTOR OF MEDICAL REVIEW
--- NOTE | 2019-01-29 11:29 | NUR ---
Nutritional Support Services Note: Diet advanced to soft. Pt is tolerating diet. Encourage good po intake of all meals. Will follow as needed. Mikaela Knight Rdn Ld
[2019-01-29 12:00] VITALS: BP 141/62
--- NOTE | 2019-01-29 13:50 | NUR ---
PATIENT TESTED FOR USE OF HOME OXYGEN USE. AT REST PATIENT ON ROOM AIR HAD AN SPO2 OF 90-92%, HEART RATE OF 84 BPM, RESPIRATORY RATE OF 22, BLOOD PRESSURE OF 141/62.DURING AMBULATION PATIENT HAD MULTIPLY DESAT DOWN TO 89% BUT WOULD BOUNCE RIGHT BACK TO 90 OR 91%. HEART RATE :97, BLOOD PRESSURE:162/66, RESPIRATORT RATE:26. DURING THE TEST PATIENT DID SEEM TO BE SHORT OF BREATH. BUT ONLY COMPLAINED OF SOME LOWER LEG SORENESS.
--- NOTE | 2019-01-29 14:42 | NUR ---
PHYSICAL THERAPY CO-SIGN I approve of the Physical Therapy notes written above Lucero Coronado PT
--- NOTE | 2019-01-29 15:20 | NUR ---
PATIENT DISCHARGED TO HOME. ALL PERSONAL BELONGINGS SENT WITH PATIENT. IV AND INSPECTOR BOILER DISCONTINUED. PATIENT REFUSED DISCHARGE PHOTOS. PATIENT INSTRUCTED TO FOLLOW UP WITH , AND WOUND CLINIC.
--- NOTE | 2019-01-29 15:36 | NUR ---
OCCUPATIONAL THERAPY CO-SIGN I approve of the Occupational Therapy notes written above. KHOI ROTHMAN OTR/Kami
== END 2019-01-29 15:20 | disposition home or self-care (01) | DRG 393 ==
LOC: ED 09:25 → EDHOLD 10:56 → ICCU 10:56 → 4E 10:56 → ICCU 10:58 → 4E 01-22 11:06 → ICCU 01-24 08:31
PROVIDERS: Emergency Medicine; Internal Medicine; Internal Medicine Critical Care Medicine; ADMIT Internal Medicine
DX: K64.9 Unspecified hemorrhoids (principal); J18.9 Pneumonia, unspecified organism; E43 Unspecified severe protein-calorie malnutrition; J96.22 Acute and chronic respiratory failure with hypercapnia; J96.21 Acute and chronic respiratory failure with hypoxia; L03.116 Cellulitis of left lower limb; L97.929 Non-pressure chronic ulcer of unspecified part of left lower leg with unspecified severity; L97.919 Non-pressure chronic ulcer of unspecified part of right lower leg with unspecified severity; D62 Acute posthemorrhagic anemia; Z68.43 Body mass index [BMI] 50.0-59.9, adult; E87.3 Alkalosis; E66.2 Morbid (severe) obesity with alveolar hypoventilation; L03.115 Cellulitis of right lower limb; K21.0 Gastro-esophageal reflux disease with esophagitis; K29.70 Gastritis, unspecified, without bleeding; R62.7 Adult failure to thrive; I50.9 Heart failure, unspecified; E78.2 Mixed hyperlipidemia; I87.2 Venous insufficiency (chronic) (peripheral); E11.622 Type 2 diabetes mellitus with other skin ulcer; F41.1 Generalized anxiety disorder; I11.0 Hypertensive heart disease with heart failure; L89.322 Pressure ulcer of left buttock, stage 2; L89.312 Pressure ulcer of right buttock, stage 2; J43.9 Emphysema, unspecified; F10.20 Alcohol dependence, uncomplicated; Y90.9 Presence of alcohol in blood, level not specified; F17.200 Nicotine dependence, unspecified, uncomplicated; Z79.899 Other long term (current) drug therapy; Z98.52 Vasectomy status; Z79.4 Long term (current) use of insulin; Z79.82 Long term (current) use of aspirin; Z89.029 Acquired absence of unspecified finger(s)

== ENCOUNTER → 2019-03-25 | Outpatient (CLI) | payer OTHER ==
[~2019-03-25] MED LIST changes: +AMLODIPINE BESYL5 MG PO; +APRESOLINE25 MG PO; +ATORVASTATIN CA40 M1 PO; +BRIMONIDINE TAR OP; +CYCLOBENZAPRIN7.5 M2 PO; +INDOMETHACIN ER75 M1 PO; +NITROFURANTOIN100 M3 PO; +OMEPRAZOLE40 MG PO; +SPIRIVA RESPIMAT4 GM INH
[2019-03-25 12:40] LABS: BASO # 0.2 10*3/uL (0.0-0.1); BASO % 1.1 % (0.0-1.0); EOS # 1.1 10*3/uL (0.0-0.4); EOS % 6.1 % (1.0-4.0); HEMATOCRIT 38.2 % (42.0-52.0); HEMOGLOBIN 11.3 g/dl (14.0-18.0); LYMPH # 3.9 10*3/uL (1.3-4.4); LYMPH % 22.4 % (27.0-41.0); MEAN CORPUSCULAR HGB 24.8 pg (27.0-31.0); MEAN CORPUSCULAR HGB CONC 29.6 g/dl (33.0-37.0); MONO # 1.4 10*3/uL (0.1-1.0); MONO % 7.7 % (3.0-9.0); NEUT # 10.9 10*3/uL (2.3-7.9); NEUT % 62.2 % (47.0-73.0); PLATELET COUNT AUTOMATED 251 10*3/uL (130-400); RED BLOOD COUNT 4.55 10*6/uL (4.50-5.90); RED CELL DISTRI WIDTH 18.4 % (0-14.5); WHITE BLOOD COUNT 17.5 10*3/uL (4.8-10.8)
[2019-03-25 13:17] LABS: ALBUMIN 3.6 gm/dl (3.1-4.5); ALKALINE PHOSPHATASE 63 U/L (45-117); BUN 19 mg/dl (7-24); CHLORIDE 105 mmol/L (98-107); CHOLESTEROL 103 mg/dL (<200); CREATININE 1.05 mg/dL (0.70-1.30); FREE T4 0.78 ng/dl (0.76-1.46); HDL CHOLESTEROL 35 mg/dl (40-60); LDL CHOLESTEROL 32 mg/dL (9-159); POTASSIUM 4.1 mmol/L (3.5-5.1); SGOT/AST 10 IU/L (3-35); SGPT/ALT 23 U/L (12-78); SODIUM 141 mmol/L (136-145); TRIGLYCERIDES 182 mg/dl (<150); VLDL CHOLESTEROL 36 mg/dL (6-40)
[2019-03-25 14:05] LABS: VITAMIN D, 25-HYDROXY 13.5 ng/mL (30-100)
== END | disposition home or self-care (01) ==
LOC: LAB 12:06
PROVIDERS: Internal Medicine
DX: Z12.5 Encounter for screening for malignant neoplasm of prostate (principal); E78.2 Mixed hyperlipidemia; I10 Essential (primary) hypertension; E11.9 Type 2 diabetes mellitus without complications; E55.9 Vitamin D deficiency, unspecified

== ENCOUNTER → 2019-04-11 | Outpatient (CLI) | payer OTHER ==
[2019-04-11 14:20] LABS: BASO # 0.1 10*3/uL (0.0-0.1); BASO % 0.8 % (0.0-1.0); EOS # 0.6 10*3/uL (0.0-0.4); EOS % 4.1 % (1.0-4.0); HEMATOCRIT 38.7 % (42.0-52.0); HEMOGLOBIN 11.6 g/dl (14.0-18.0); LYMPH # 3.4 10*3/uL (1.3-4.4); LYMPH % 23.2 % (27.0-41.0); MEAN CORPUSCULAR HGB 24.6 pg (27.0-31.0); MEAN PLATELET VOLUME 11.8 fl (9.6-12.3); MONO # 1.5 10*3/uL (0.1-1.0); NEUT # 8.8 10*3/uL (2.3-7.9); NEUT % 60.8 % (47.0-73.0); PLATELET COUNT AUTOMATED 309 10*3/uL (130-400); RED BLOOD COUNT 4.72 10*6/uL (4.50-5.90); RED CELL DISTRI WIDTH 18.6 % (0-14.5); WHITE BLOOD COUNT 14.5 10*3/uL (4.8-10.8)
== END | disposition home or self-care (01) ==
LOC: LAB 13:26
PROVIDERS: Internal Medicine
DX: K21.0 Gastro-esophageal reflux disease with esophagitis (principal); E11.9 Type 2 diabetes mellitus without complications; I10 Essential (primary) hypertension; J43.1 Panlobular emphysema; D72.829 Elevated white blood cell count, unspecified